=== PATIENT | male | born 1955 | race American Indian/Alaskan Native ===

== ENCOUNTER 2018-05-26 15:49 | Inpatient (IN) | payer OTHER ==
[~2018-05-26] VITALS: Ht 172.7 cm; Wt 68.0 kg
[2018-05-26] MEDS ORDERED: [UNRECOGNIZED DRUG - CODE] PO (16:05)
[2018-05-26] MEDS ORDERED: [UNRECOGNIZED DRUG - CODE] PO (16:05)
[2018-05-26] MEDS ORDERED: IPRATROPIUM BROMIDE (0.02%) 0.5MG/2.5ML NEB HHN STA (16:35)
[2018-05-26] MEDS ORDERED: SODIUM CHLORIDE 0.9% 1,000 ML IV ONE (16:35)
[2018-05-26] MEDS ORDERED: ALBUTEROL (0.083%) 2.5MG/3ML NEB HHN STA (16:35)
[2018-05-26] MEDS ORDERED: ACETAMINOPHEN 325MG TABLET PO ONE (16:45)
[2018-05-26 17:13] LABS: BASOPHILS % 0.3 % (0.0-2.0); EOSINOPHILS % 0.2 % (0.0-5.0); HEMATOCRIT. 46.1 % (42.0-52.0); HEMOGLOBIN. 15.7 g/dL (14.0-18.0); LYMPHOCYTES % 13.7 % (20.0-50.0); MEAN CORPUSCULAR HEMOGLOBIN 30.7 pg (28.0-32.0); MEAN CORPUSCULAR VOLUME 90.5 fL (80.0-94.0); MEAN PLATELET VOLUME 8.1 fl (7.4-10.4); MONOCYTES % 6.9 % (2.0-8.0); NEUTROPHILS % 78.9 % (40.0-76.0); PLATELET 240 x1000/uL (130-400); RED CELL DISTRIBUTION WIDTH 13.2 % (11.6-14.6)
[2018-05-26 17:16] LABS: CHLORIDE 106 mEq/L (98-107)
[2018-05-26 17:20] LABS: PROTHROMBIN TIME 10.1 sec (9.6-11.0)
[2018-05-26] MEDS ORDERED: LEVOFLOXACIN 500MG PREMIX 100 ML IV ONE (17:30)
[2018-05-26] MEDS ORDERED: ASPIRIN 81MG TABLET PO ONE (17:30)
[2018-05-26 19:21] LABS: CLARITY URINE CLEAR (CLEAR); COLOR URINE YELLOW (YELLOW); KETONES URINE TRACE (NEGATIVE); LEUKOCYTE ESTERASE URINE NEGATIVE (NEGATIVE); NITRITE URINE NEGATIVE (NEGATIVE); OCCULT BLOOD URINE NEGATIVE (NEGATIVE); PH URINE 5.5 (4.5-8.0); PROTEIN URINE NEGATIVE (NEGATIVE); SPECIFIC GRAVITY URINE 1.025 (1.005-1.030); UROBILINOGEN URINE 0.2 E.U./dL (0.2-1.0)
[2018-05-26 23:30] VITALS: BP 119/74
[2018-05-27] MEDS ORDERED: ONDANSETRON HCL 4MG/2ML INJ IV PRN (00:45)
[2018-05-27] MEDS ORDERED: CEFEPIME 1,000 MG in DEXTROSE 5% WATER 50 ML IV SCH (00:45)
[2018-05-27] MEDS ORDERED: ACETAMINOPHEN 325MG TABLET PO PRN (00:45)
[2018-05-27] MEDS ORDERED: HYDROCODONE/ACETAMINOPHEN 5/325MG TABLET PO PRN (00:45)
[2018-05-27] MEDS ORDERED: CLONIDINE 0.1MG TABLET PO PRN (00:45)
[2018-05-27] MEDS ORDERED: METHYLPREDNISOLONE SOD SUCC 40 MG/ML VIAL IV SCH ×2 (01:00→16:30)
[2018-05-27] MEDS: CEFEPIME 1,000 MG in DEXTROSE 5% WATER 50 ML IV SCH ×2 (02:15→14:59)
[2018-05-27 04:00] VITALS: BP 116/70
[2018-05-27] MEDS ORDERED: PANTOPRAZOLE 40MG DR TABLET PO SCH (07:20)
[2018-05-27 08:05] VITALS: BP 118/73
[2018-05-27] MEDS ORDERED: ENOXAPARIN 40MG/0.4ML SYR SUBCUT SCH (09:00)
[2018-05-27] MEDS ORDERED: LOSARTAN POTASSIUM 50 MG TABLET PO SCH (09:00)
[2018-05-27] MEDS ORDERED: AMLODIPINE 5MG TABLET PO SCH (09:00)
[2018-05-27] MEDS: IPRATROPIUM/ALBUTEROL 0.5-3(2.5)MG/3ML NEB HHN SCH ×3 (09:01→15:03)
[2018-05-27 11:30] LABS: HEMATOCRIT. 43.1 % (42.0-52.0); HEMOGLOBIN. 14.7 g/dL (14.0-18.0); MEAN CORPUSCULAR HEMOGLOBIN 30.6 pg (28.0-32.0); MEAN CORPUSCULAR VOLUME 89.7 fL (80.0-94.0); RED BLOOD CELL COUNT 4.81 mill/uL (4.7-6.1); RED CELL DISTRIBUTION WIDTH 13.2 % (11.6-14.6)
[2018-05-27 11:35] VITALS: BP 129/71
[2018-05-27 11:36] LABS: CHLORIDE 108 mEq/L (98-107)
[2018-05-27 11:48] LABS: PLATELET 227 x1000/uL (130-400)
[2018-05-27 11:55] LABS: PLATELET ESTIMATE NORMAL
[2018-05-27] MEDS ORDERED: IPRATROPIUM/ALBUTEROL 0.5-3(2.5)MG/3ML NEB HHN SCH (12:00)
[2018-05-27] MEDS ORDERED: SODIUM CHLORIDE 0.45% 1,000 ML IV SCH (12:00)
[2018-05-27 14:09] LABS: BG CARBOXYHEMOGLOBIN 0.7 % (0.5-1.5); BG FRACTION INSPIRED OXYGEN 21; BG HCO3 ACT 19.3 mmol/L (22.0-26.0); BG METHEMOGLOBIN 0.2 % (0.0-1.5); BG OXYGEN SATURATION 92.9 % (92.0-98.5); BG OXYHEMOGLOBIN 92.1 % (94.0-97.0); BG PCO2 30.5 mmHg (35.0-45.0); BG PH 7.418 (7.350-7.450); BG PO2 60.7 mmHg (75.0-100.0); BG SAMPLE SITE RIGHT RADIAL; BG TOTAL HEMOGLOBIN 14.9 g/dL (12.0-18.0); BG VENT MODE ROOM AIR
[2018-05-27 15:46] VITALS: BP 123/72
[2018-05-27 17:49] VITALS: BP 123/72
[2018-05-27 19:45] VITALS: BP 141/81
[2018-05-27] MEDS ORDERED: GUAIFENESIN 600MG ER TABLET PO SCH (21:00)
== END 2018-05-27 20:00 | disposition short-term general hospital (02) | DRG 871 ==
LOC: ER 15:49 → 6WST 17:29 → ENRESERV 21:06
PROVIDERS: ADMIT Internal Medicine; ATTEND Internal Medicine
DX: A41.9 Sepsis, unspecified organism (principal); J18.9 Pneumonia, unspecified organism; J98.11 Atelectasis; E87.2 Acidosis; I10 Essential (primary) hypertension; E86.0 Dehydration; R73.9 Hyperglycemia, unspecified; R06.03 Acute respiratory distress
CPT/HCPCS: 36415; 36600; 71045; 80048; 82375; 82805; 83605; 84145; 84484; 87804; 93005; 94640; 96365; 99285; J0692; J1650; J1956; J2920; J7030; J7050; J7060; J7611; J7620

== ENCOUNTER 2020-02-24 15:53 | Inpatient (IN) | payer BC, OTHER ==
[~2020-02-24] VITALS: Ht 172.7 cm; Wt 68.0 kg
[~2020-02-24 15:53] MED LIST: [UNRECOGNIZED DRUG - CODE] PO; [UNRECOGNIZED DRUG - CODE] PO
[2020-02-24] MEDS ORDERED: AZITHROMYCIN 500 MG in DEXT 5% WATER 250 ML IV ONE (16:30)
[2020-02-24] MEDS ORDERED: DEXAMETHASONE 10 MG/ML VIAL IV ONE (16:30)
[2020-02-24] MEDS ORDERED: CEFTRIAXONE 1 G PREMIX 50 ML IV ONE (16:30)
[2020-02-24 16:40] LABS: BASOPHILS % 0.2 % (0.0-2.0); EOSINOPHILS % 0.3 % (0.0-5.0); HEMATOCRIT. 45.5 % (42.0-52.0); HEMOGLOBIN. 15.4 g/dL (14.0-18.0); LYMPHOCYTES % 17.7 % (20.0-50.0); MEAN CORPUSCULAR HEMOGLOBIN 30.5 pg (28.0-32.0); MEAN CORPUSCULAR VOLUME 89.8 fL (80.0-94.0); MEAN PLATELET VOLUME 7.8 fl (7.4-10.4); MONOCYTES % 10.3 % (2.0-8.0); NEUTROPHILS % 71.5 % (40.0-76.0); PLATELET 436 x1000/uL (130-400); RED BLOOD CELL COUNT 5.07 mill/uL (4.7-6.1); RED CELL DISTRIBUTION WIDTH 13.6 % (11.6-14.6)
[2020-02-24 16:46] LABS: CHLORIDE 110 mEq/L (98-107)
[2020-02-24 16:52] LABS: D-DIMER 1.34 mg/L FEU (<0.50); PROTHROMBIN TIME 10.3 sec (9.6-11.0)
[2020-02-24 16:53] LABS: CREATINE KINASE 159 IU/L (39-308)
[2020-02-24] MEDS ORDERED: SODIUM CHLORIDE 0.9% 1,000 ML IV ONE (17:30)
[2020-02-24 18:14] LABS: BG BASE EXCESS 0.1 mmol/L (-2.0-2.0); BG CARBOXYHEMOGLOBIN 1.4 % (0.5-1.5); BG DEOXYHEMOGLOBIN 9.6 % (0.0-5.0); BG FRACTION INSPIRED OXYGEN 36; BG HCO3 ACT 23.6 mmol/L (22.0-26.0); BG METHEMOGLOBIN 0.3 % (0.0-1.5); BG OXYGEN SATURATION 90.2 % (92.0-98.5); BG OXYHEMOGLOBIN 88.7 % (94.0-97.0); BG PCO2 35.2 mmHg (35.0-45.0); BG PH 7.444 (7.350-7.450); BG PO2 57.9 mmHg (75.0-100.0); BG SAMPLE SITE RIGHT BRACHIAL; BG TOTAL HEMOGLOBIN 15.5 g/dL (12.0-18.0); BG VENT MODE NASAL CANNULA
[2020-02-24] MEDS ORDERED: CLONIDINE 0.1MG TABLET PO PRN (20:00)
[2020-02-24] MEDS ORDERED: GUAIFENESIN 200MG/10ML SUGAR FREE UDC PO PRN (20:00)
[2020-02-24] MEDS ORDERED: HYDROCODONE/ACETAMINOPHEN 5/325MG TABLET PO PRN (20:00)
[2020-02-24] MEDS ORDERED: ALBUTEROL 6.7GM HFA INHALER ORI SCH (20:00)
[2020-02-24] MEDS ORDERED: DIPHENHYDRAMINE 50MG/ML VIAL IV PRN (20:00)
[2020-02-24] MEDS ORDERED: DOCUSATE SODIUM 100MG CAPSULE PO PRN (20:00)
[2020-02-24] MEDS ORDERED: NA PHOS,M-B/NA PHOS,DI-BA ENEMA 118ML PR PRN (20:00)
[2020-02-24] MEDS ORDERED: MAGNESIUM/ALUMINUM HYDROXIDE/SIMETHICONE 30ML UDC PO PRN (20:00)
[2020-02-24] MEDS ORDERED: ACETAMINOPHEN 650MG SUPP PR PRN (20:00)
[2020-02-24] MEDS ORDERED: ONDANSETRON HCL 4MG/2ML INJ IV PRN (20:00)
[2020-02-24] MEDS ORDERED: ACETAMINOPHEN 325MG TABLET PO PRN (20:00)
[2020-02-24] MEDS ORDERED: LORAZEPAM 0.5MG TABLET PO PRN (20:00)
[2020-02-24] MEDS: DEXAMETHASONE 10 MG/ML VIAL IV SCH (21:00)
[2020-02-24] MEDS ORDERED: ENOXAPARIN 40MG/0.4ML SYR SUBCUT SCH (21:00)
[2020-02-24 21:55] LABS: BG BASE EXCESS -0.2 mmol/L (-2.0-2.0); BG CARBOXYHEMOGLOBIN 0.3 % (0.5-1.5); BG DEOXYHEMOGLOBIN 7.1 % (0.0-5.0); BG FRACTION INSPIRED OXYGEN 100; BG HCO3 ACT 23.6 mmol/L (22.0-26.0); BG METHEMOGLOBIN 0.3 % (0.0-1.5); BG OXYGEN SATURATION 92.9 % (92.0-98.5); BG OXYHEMOGLOBIN 92.3 % (94.0-97.0); BG PCO2 36.2 mmHg (35.0-45.0); BG PH 7.432 (7.350-7.450); BG PO2 64.4 mmHg (75.0-100.0); BG SAMPLE SITE RIGHT RADIAL; BG TOTAL HEMOGLOBIN 14.7 g/dL (12.0-18.0); BG VENT MODE MASK - NRB
[2020-02-25 06:52] LABS: BASOPHILS % 0.4 % (0.0-2.0); HEMATOCRIT. 40.9 % (42.0-52.0); HEMOGLOBIN. 13.9 g/dL (14.0-18.0); LYMPHOCYTES % 18.3 % (20.0-50.0); MEAN CORPUSCULAR HEMOGLOBIN 30.1 pg (28.0-32.0); MEAN CORPUSCULAR VOLUME 88.5 fL (80.0-94.0); MEAN PLATELET VOLUME 7.4 fl (7.4-10.4); MONOCYTES % 3.4 % (2.0-8.0); NEUTROPHILS % 77.9 % (40.0-76.0); PLATELET 433 x1000/uL (130-400); RED BLOOD CELL COUNT 4.63 mill/uL (4.7-6.1); RED CELL DISTRIBUTION WIDTH 13.3 % (11.6-14.6)
[2020-02-25 07:04] LABS: CHLORIDE 111 mEq/L (98-107)
[2020-02-25 07:16] LABS: LDL CHOLESTEROL 93 mg/dL (5-100); T4 FREE 1.54 ng/dL (0.76-1.46)
[2020-02-25 07:17] LABS: HDL CHOLESTEROL 32 mg/dL (40-59)
[2020-02-25] MEDS ORDERED: FAMOTIDINE 20MG/2ML VIAL IV SCH (09:00)
[2020-02-25] MEDS: DEXAMETHASONE 10 MG/ML VIAL IV SCH (09:32)
[2020-02-25 11:52] LABS: BG BASE EXCESS -2.9 mmol/L (-2.0-2.0); BG CARBOXYHEMOGLOBIN 0.8 % (0.5-1.5); BG DEOXYHEMOGLOBIN 4.9 % (0.0-5.0); BG HCO3 ACT 20.1 mmol/L (22.0-26.0); BG METHEMOGLOBIN 0.1 % (0.0-1.5); BG OXYGEN SATURATION 95.1 % (92.0-98.5); BG OXYHEMOGLOBIN 94.2 % (94.0-97.0); BG PO2 72.4 mmHg (75.0-100.0); BG SAMPLE SITE RIGHT RADIAL; BG TOTAL HEMOGLOBIN 15.8 g/dL (12.0-18.0); BG VENT MODE MASK - NRB
[2020-02-25] MEDS ORDERED: AZITHROMYCIN 500 MG in DEXT 5% WATER 250 ML IV SCH ×2 (16:00→17:00)
[2020-02-25] MEDS ORDERED: CEFTRIAXONE 1 G PREMIX 50 ML IV SCH (16:30)
[2020-02-25 16:50] VITALS: BP 122/68
[2020-02-25] MEDS ORDERED: CEFTRIAXONE 1,000 MG in DEXTROSE 5% WATER 50 ML IV SCH (17:00)
== END 2020-02-25 19:53 | disposition left against medical advice (07) | DRG 177 ==
LOC: ER 15:53 → MICUSO 18:49 → EDBEDREQ 18:53 → EDBEDREQTM 18:53 → SUPCPDRO 19:54
PROVIDERS: ADMIT Internal Medicine; ATTEND Internal Medicine
DX: U07.1 COVID-19 (principal); J12.82 Pneumonia due to coronavirus disease 2019; J96.01 Acute respiratory failure with hypoxia; D68.69 Other thrombophilia; E86.0 Dehydration; I10 Essential (primary) hypertension; D72.810 Lymphocytopenia; E05.90 Thyrotoxicosis, unspecified without thyrotoxic crisis or storm; Z99.81 Dependence on supplemental oxygen; Z79.899 Other long term (current) drug therapy; R79.89 Other specified abnormal findings of blood chemistry
CPT/HCPCS: 36415; 36600; 71045; 80053; 80061; 82375; 82550; 82728; 82805; 83605; 83615; 83880; 84145; 84439; 84443; 84484; 85025; 85379; 85384; 86140; 86850; 86900; 93005; 96365; 99291; J0456; J0696; J1100; J1650; J3490; J7030; J7060